=== PATIENT | female | born 1995 | race Caucasian/White ===

== ENCOUNTER → 2018-04-17 | Outpatient (CLI) | payer BC ==
[~2018-04-17] MED LIST: ACET-3017 PO; HPV0.5VI IM; IBUP800T37 PO
== END ==
LOC: LAB 09:11
PROVIDERS: ATTEND Obstetrics & Gynecology
DX: Z11.3 Encounter for screening for infections with a predominantly sexual mode of transmission (principal); Z11.9 Encounter for screening for infectious and parasitic diseases, unspecified
CPT/HCPCS: 87491; 87591